=== PATIENT | male | born 1950 | race Caucasian/White ===

== ENCOUNTER 2022-02-20 22:39 | Emergency (ER) | payer MEDICARE, SELFPAY ==
[2022-02-20 22:41] VITALS: BP 147/68; PULSE 125; RESP 24; TEMP 36.6; O2SAT 94; BMI 36.6
[2022-02-20 22:47] VITALS: BP 147/68; PULSE 124; RESP 20; TEMP 36.6; O2SAT 96
[2022-02-20 22:49] VITALS: BP 147/68; PULSE 101; O2SAT 93
[2022-02-20 23:01] VITALS: BP 103/67; PULSE 102; O2SAT 94
--- NOTE | 2022-02-20 23:01 | PC.NURSE ---
DR Galladro gave writen list of orders on pt cbc, cmp, psa, ct abd pel w/o, UA, urinary cath insertion, IV cath insertion
--- NOTE | 2022-02-20 23:08 | CT_ITS ---
PROCEDURE INFORMATION: Exam: CT Abdomen And Pelvis Without Contrast Exam date and time: 02/20/2022 11:20 PM Age: 71 years old Clinical indication: Other: Urinary retention; Prior surgery; Surgery type: Renal stents TECHNIQUE: Imaging protocol: Computed tomography of the abdomen and pelvis without contrast. Radiation optimization: All CT scans at this facility use at least one of these dose optimization techniques: automated exposure control; mA and/or kV adjustment per patient size (includes targeted exams where dose is matched to clinical indication); or iterative reconstruction. COMPARISON: No relevant prior studies available. FINDINGS: Lungs: Mild scarring in the lung bases. Liver: Tiny too small to characterize hypodense lesions in the liver which could reflect tiny cysts. Gallbladder and bile ducts: Punctate gallstone. Pancreas: Normal. No ductal dilation. Spleen: Normal. No splenomegaly. Adrenal glands: Normal. No mass. Kidneys and ureters: Exophytic 6 cm cyst right kidney. Additional smaller simple cysts involving bilateral kidneys. Bilateral nephroureteral stents in good position. There is moderate bilateral hydronephrosis and ureteral dilatation. Stomach and bowel: Unremarkable. No obstruction. No mucosal thickening. Appendix: No evidence of appendicitis. Intraperitoneal space: Unremarkable. No free air. No significant fluid collection. Vasculature: Unremarkable. No abdominal aortic aneurysm. Lymph nodes: Unremarkable. No enlarged lymph nodes. Urinary bladder: Urinary bladder wall thickening with surrounding inflammatory changes concerning for cystitis. Vu catheter in place. Reproductive: Unremarkable as visualized. Bones/joints: Unremarkable. No acute fracture. Soft tissues: Unremarkable. IMPRESSION: 1. Urinary bladder wall thickening with surrounding inflammatory changes concerning for cystitis. 2. Moderate bilateral hydronephrosis with bilateral nephroureteral stents in place. No Moon stent calcifications. 3. No GI tract obstruction or inflammation. COMMENTS: Consistent with the [employer]'s Incidental Findings Committee white paper (J Am Samantha Radiol 2018): Any incidental renal lesion less than 1 cm or classified as too small to characterize, or any incidental cystic renal lesion characterized as simple-appearing, is likely benign. No follow-up imaging is recommended for these lesions per consensus recommendations based on imaging criteria.
--- NOTE | 2022-02-20 23:11 | [facility].EDUROGM ---
Discharge Plan Disposition Patient Disposition: Home, Self-Care Prescriptions Prescriptions: New cephalexin [cephalexin] 500 mg capsule 500 mg PO TID Qty: 30 0RF No Action metoprolol succinate 50 mg tablet extended release 24 hr 50 mg PO DAILY potassium chloride 20 mEq tablet,ER particles/crystals 20 meq PO DAILY tamsulosin 0.4 mg capsule 0.4 mg PO DAILY furosemide 20 mg tablet 20 mg PO DAILY Referrals Follow up/Referrals: Provider,Referral, [Primary Care Provider] - See instructions Clinical Impressions Clinical Impression: Urinary tract infection, Acute retention of urine, Cystitis, CRI (chronic renal insufficiency) Instructions Patient Instructions: How to Care for Your Vu Catheter -- Male, DI for Urinary Tract Infection (UTI), DI for Urinary Retention in Men Discharge ED Provider: Samson Gallardo Male Urogenital HPI General Chief complaint: Urogenital-Male Stated complaint: cannot urinate Time Seen by Provider: 02/20/22 23:11 Mode of Arrival: Ambulatory Source of Information: Patient, Spouse and Medical Record Limitations: No Limitations Description of Symptoms (Recalled from ER Triage Doc. by RN): pt states he hasnt been able to pee in over 2 hours. the pt had the same issue a year ago that was fixed by shaving his prostate pt reported that he was moving yesterday and that may have triggered it History of Present Illness HPI Narrative: hx of blood in urine since yesterday and now with acute retention - hx of prostate dis - has renal stents Complaint: other (retention) Onset (ago): day(s) Severity: moderate Reports urinary retention and blood in urine Related Data Home Medications Medication Instructions Recorded Confirmed furosemide 20 mg tablet 20 mg PO DAILY Fluid 02/20/22 02/20/22 metoprolol succinate 50 mg 50 mg PO DAILY Hypertension 02/20/22 02/20/22 tablet,extended release 24 hr potassium chloride 20 mEq 20 meq PO DAILY Supplement 02/20/22 02/20/22 tablet,extended release(part/cryst) tamsulosin 0.4 mg capsule 0.4 mg PO DAILY urine flow 02/20/22 02/20/22 Previous Rx's Medication Instructions Recorded cephalexin 500 mg capsule 500 mg PO TID #30 caps 02/21/22 Allergies Allergy/AdvReac Type Severity Reaction Status Date / Time No Known Allergies Allergy Verified 02/20/22 23:07 [facility] Surgical History (Updated 02/20/22 @ 23:40 by Belkys Mabry RN) History of renal stent S/P TURP Social History Smoking Status: Never smoker alcohol intake: never current occupational status: retired Travel in the last 8 weeks: None ROS Obtained: Yes All systems reviewed & no additional complaints except as documented Constitutional Constitutional: Denies fever(s) Genitourinary Male Genitourinary: Reports as per HPI, Reports hematuria and Reports oliguria Physical Exam General General appearance: alert Head Head exam: normocephalic Eye Eye exam: Present PERRL and EOMI ENT ENT exam: Present mucous membranes moist Neck Neck exam: Present trachea midline Respiratory Respiratory exam: Absent respiratory distress Cardiovascular Cardiovascular exam: Present regular rate and systolic murmur Abdominal Exam Abdominal exam: Present soft and other (distended bladder ) Abdominal tenderness: Present suprapubic and moderate exam: Present circumcised; Absent scrotal swelling Back Exam Back exam: Absent CVA tenderness (R) Neurological Exam Neurological exam: Present alert and CN II-XII intact Psychiatric Psychiatric exam: Present normal affect Skin Skin exam: Absent rash Medical Decision Making Medical Records Medical records reviewed: Yes I reviewed the patient's medical records. Adrian Inquiry Pt receiving controlled substance: No Vital Signs: 02/20/22 22:47 02/20/22 22:41 02/20/22 22:49 Temperature 97.9 F 97.9 F Temperature Source Oral Pulse Rate 124 H 101 H Pulse Rate [Left] 125 H Respiratory
--- NOTE | 2022-02-20 23:11 | PC.NURSE ---
urinary cath placed by dr Gallardo upon pt arrival initial output 900 ml the urine is brown cloudy milky appearance with visible sediment
[2022-02-20 23:14] LABS: Microscopic, Urine URINE MICROSCOPIC (MICROSCOPIC)
[2022-02-20 23:17] LABS: Appearance,Urine CLOUDY (Clear); Basophils # 0.1 K/mm3 (0-0.2); Basophils % 1.2 % (0.1-2.0); Blood, Urine 3+ (Negative); Color,Urine BROWN (Yellow); Eosinophils # 0.2 K/mm3 (0.0-0.4); Glucose,Urine (UA) Negative (Negative); Hemoglobin 15.4 g/dL (14.1-18.0); Ketones,Urine Negative (Negative); Leukocyte Esterase,Urine 3+ (Negative); Lymphocytes # 1.3 K/mm3 (0.7-4.5); Lymphocytes % 17.8 % (10-50); Mean Corpuscular HGB Conc 32.7 g/dL (31.8-35.4); Mean Corpuscular Hemoglobin 28.7 pg (27.0-31.2); Mean Corpuscular Volume 87.7 fl (80-94); Mean Platelet Volume 9.2 fl (7.4-10.4); Monocytes # 0.6 K/mm3 (0.1-1.0); Monocytes % 8.7 % (1.7-9.3); Neutrophils # 4.9 K/mm3 (1.8-7.8); Neutrophils % 69.3 % (37.0-80.0); Nitrate,Urine POSITIVE (Negative); Platelet Count 240 K/mm3 (142-424); Protein,Urine 2+ (Negative); Red Blood Count 5.36 M/mm3 (4.60-6.20); Red Cell Distribution Width 15.5 % (11.5-17.5); Specific Gravity, Urine 1.015 (1.005-1.030)
[2022-02-20 23:21] LABS: Bilirubin,Urine 1+ (Negative)
[2022-02-20 23:22] LABS: Alanine Aminotransferase 19 U/L (12-78); Albumin Level 3.9 g/dl (3.5-5.0); Albumin/Globulin Ratio 1.3 (1.1-1.8); Alkaline Phosphatase 158 U/L (38-126); Aspartate Amino Transferase 30 U/L (17-59); Bilirubin,Total 0.6 mg/dl (0.2-1.3); Blood Urea Nitrogen 49 mg/dl (9-20); Calcium 8.7 mg/dl (8.4-10.2); Carbon Dioxide 18 mmol/L (22.0-30.0); Chloride 107 mmol/L (98-107); Creatinine Clearance Estimated 48 mL/min (50-200); Estimated Glomerular Filt Rate 24 ml/min (>60); GFR (African American) 30 ML/MIN (>60); Glucose 127 mg/dl (74-100); Total Protein,Serum 6.9 g/dl (6.3-8.2)
--- NOTE | 2022-02-20 23:23 | PC.NURSE ---
pt just went to CT.
[2022-02-20 23:27] LABS: Bacteria,Urine 1+ /lpf; RBC,Urine 20-50 #/hpf (0-3); Squamous Epithelial Cell,Urine Occasional #/hpf (0-5); WBC,Urine TNTC #/hpf (0-3)
[2022-02-20 23:30] LABS: Sodium 138 mmol/L (136-145)
--- NOTE | 2022-02-20 23:31 | PC.NURSE ---
pt. resting just got back from CT. no needs
[2022-02-20 23:33] VITALS: BP 114/62; PULSE 99; O2SAT 93
[2022-02-21] VITALS: BP 111/67; PULSE 96; O2SAT 90
--- NOTE | 2022-02-21 00:04 | PC.NURSE ---
pt resting no needs at this time
--- NOTE | 2022-02-21 00:25 | PC.NURSE ---
pt. resting. no needs at this time
[2022-02-21 00:30] VITALS: BP 111/76; PULSE 96; O2SAT 92
[2022-02-21 00:38] VITALS: BP 99/72; PULSE 99; RESP 18; TEMP 36.6
[2022-02-21 00:39] VITALS: BP 99/72; PULSE 105; O2SAT 93
[2022-02-21 00:47] LABS: Lactic Acid 0.7 mmol/L (0.7-2.1)
--- NOTE | 2022-02-21 01:12 | PC.NURSE ---
pt mcgovern emptied 1000 total output. pt was given [facility] care instructions and a leg bad upon discharge
== END 2022-02-21 01:13 | disposition home or self-care (01) ==
PROVIDERS: Emergency Provider Emergency Medicine
DX: N30.90 Cystitis, unspecified without hematuria (principal); I12.9 Hypertensive chronic kidney disease with stage 1 through stage 4 chronic kidney disease, or unspecified chronic kidney disease; N18.9 Chronic kidney disease, unspecified; Z79.899 Other long term (current) drug therapy; R33.9 Retention of urine, unspecified
CPT/HCPCS: 51702; 74176; 80053; 81001; 83605; 85025; 87040; 87086; 87088; 87186; 96365; 96375; 99284; G0103; J0696; J2405